=== PATIENT | male | born 1950 | race Caucasian/White ===

== ENCOUNTER 2017-04-21 06:45 | Outpatient (CLI) | payer MEDICARE ==
[2017-04-21 12:46] LABS: EOSINOPHILS # (AUTO) 0.2 10^3/uL (0.0-0.7); LYMPHOCYTES # (AUTO) 1.6 10^3/uL (1.5-3.5); NEUTROPHILS # (AUTO) 2.8 10^3/uL (1.5-6.6); RED BLOOD COUNT 5.03 10^6/uL (4.70-6.10)
[2017-04-21 12:49] LABS: BASOPHILS % (AUTO) 0.7 %; EOSINOPHILS % (AUTO) 4.8 %; HCT - HEMATOCRIT 42.9 % (42.0-52.0); HGB - HEMOGLOBIN 14.6 g/dL (14.0-18.0); LYMPHOCYTES % (AUTO) 30.7 %; MEAN CORPUSCULAR VOLUME 85.4 fL (80.0-94.0); MEAN PLATELET VOLUME 7.6 fL (7.4-11.4); MONOCYTES # (AUTO) 0.5 10^3/uL (0.0-1.0); NEUTROPHILS % (AUTO) 54.8 %; RED CELL DISTRIBUTION WIDTH 13.6 % (12.0-15.0); UNCORRECTED WHITE BLOOD COUNT 5.2 x10^3/uL; WHITE BLOOD COUNT 5.2 x10^3/uL (4.8-10.8)
[2017-04-21 13:16] LABS: ALBUMIN/GLOBULIN RATIO 1.5 (1.0-2.2); BILIRUBIN,TOTAL 0.8 mg/dL (0.2-1.0); BUN - BLOOD UREA NITROGEN 12 mg/dL (6-20); CALCIUM 9.1 mg/dL (8.5-10.3); CARBON DIOXIDE - CO2 27 mmol/L (21-32); CHLORIDE 104 mmol/L (101-111); CHOLESTEROL 254 mg/dL; CREATININE 0.9 mg/dL (0.6-1.2); GFR - MDRD 84 (>89); GLUCOSE 94 mg/dL (70-100); HDL CHOLESTEROL 42 mg/dL; LDL/HDL RATIO 4.3 (<3.6); POTASSIUM 4.1 mmol/L (3.5-5.0); SODIUM 137 mmol/L (135-145); TOTAL PROTEIN 6.3 g/dL (6.7-8.2); TRIGLYCERIDES 150 mg/dL; VLDL CHOLESTEROL 30 mg/dL
== END 2017-04-21 06:46 | disposition home or self-care (01) ==
LOC: LAB.WCP 06:45
PROVIDERS: ATTEND Family Medicine
DX: E78.5 Hyperlipidemia, unspecified (principal); Z12.5 Encounter for screening for malignant neoplasm of prostate
CPT/HCPCS: 36415; 80053; 80061; 85025; G0103; 84153

== ENCOUNTER 2017-06-09 14:12 | Outpatient (CLI) | payer MEDICARE ==
--- NOTE | 2017-06-09 16:49 | Ultrasound Report ---
ULTRASOUND LEFT POSTERIOR BACK: 06/09/2017 CLINICAL INDICATION: Parascapular mass. TECHNIQUE: Real-time scanning was performed with veterans employment representative static images obtained. FINDINGS: Ultrasound of the palpable abnormality identified by the patient was performed. At this site, there is a 7.2 x 3.5 x 2.3 cm echogenic intramuscular lesion, compatible with an intram uscular lipoma. No significant internal vascularity is identified. 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 JOB #: [id number] EXT JOB #:[id number]
== END 2017-06-09 14:13 | disposition home or self-care (01) ==
LOC: DI 14:12
PROVIDERS: ATTEND Family Medicine
DX: R22.2 Localized swelling, mass and lump, trunk (principal)
CPT/HCPCS: 76882

== ENCOUNTER 2018-04-21 10:15 | Outpatient (CLI) | payer MEDICARE ==
[2018-04-21 12:45] LABS: PSA FREE 1.21 ng/mL (0.16-2.81)
[2018-04-21 12:46] LABS: PSA TOTAL 3.58 ng/mL (0.000-2.000)
[2018-04-21 12:58] LABS: ALBUMIN 3.6 g/dL (3.2-5.5); ALBUMIN/GLOBULIN RATIO 1.2 (1.0-2.2); ALKALINE PHOSPHATASE 52 IU/L (42-121); ALT ALANINE AMINOTRANSFERASE 22 IU/L (10-60); AST ASPARTATE AMINOTRANSFERASE 27 IU/L (10-42); BILIRUBIN,TOTAL 0.7 mg/dL (0.2-1.0); BUN - BLOOD UREA NITROGEN 12 mg/dL (6-20); CALCIUM 9.2 mg/dL (8.5-10.3); CARBON DIOXIDE - CO2 29 mmol/L (21-32); CHLORIDE 104 mmol/L (101-111); CHOL/HDL RATIO 5.4 (<5.0); CHOLESTEROL 254 mg/dL; GFR - MDRD 74 (>89); GLUCOSE 97 mg/dL (70-100); HDL CHOLESTEROL 47 mg/dL; LDL CHOLESTEROL,CALCULATED 174 mg/dL; LDL/HDL RATIO 3.7 (<3.6); SODIUM 138 mmol/L (135-145); TOTAL PROTEIN 6.6 g/dL (6.7-8.2); VLDL CHOLESTEROL 33 mg/dL
== END 2018-04-21 10:16 | disposition home or self-care (01) ==
LOC: LAB.WCP 10:15
PROVIDERS: ATTEND Family Medicine
DX: E78.5 Hyperlipidemia, unspecified (principal); R97.20 Elevated prostate specific antigen [PSA]
CPT/HCPCS: 36415; 80053; 80061; 83721; 84154

== ENCOUNTER 2018-08-08 11:44 | Day surgery (SDC) | payer MEDICARE ==
[2018-08-08] MEDS ORDERED: LACTATED RINGERS 1,000 ML IV ONE (12:36)
[2018-08-08] MEDS ORDERED: MIDAZOLAM 2 MG/2 ML VIAL IVP ONE (13:01)
[2018-08-08] MEDS ORDERED: fentaNYL 250 MCG/5 ML VIAL IVP ONE (13:01)
[2018-08-08 14:13] VITALS: BP 105/68
== END 2018-08-08 11:45 | disposition home or self-care (01) ==
LOC: SDS 11:44
PROVIDERS: ATTEND Surgery
PROC: 0DJD8ZZ Inspection of Lower Intestinal Tract, Via Natural or Artificial Opening Endoscopic (ICD-10-PCS; principal; 2018-08-08 13:15)
DX: R19.5 Other fecal abnormalities (principal); K57.30 Diverticulosis of large intestine without perforation or abscess without bleeding; K64.8 Other hemorrhoids
CPT/HCPCS: 45378; J3010; J7120

== ENCOUNTER 2018-11-07 08:00 | Outpatient (CLI) | payer MEDICARE ==
[2018-11-07 15:20] LABS: PSA FREE 1.37 ng/mL (0.16-2.81)
[2018-11-07 15:21] LABS: PSA TOTAL 3.43 ng/mL (0.000-2.000)
== END 2018-11-07 23:59 | disposition home or self-care (01) ==
LOC: LAB.WCP 08:00
PROVIDERS: ATTEND Family Medicine
DX: R97.20 Elevated prostate specific antigen [PSA] (principal)
CPT/HCPCS: 36415; 84153; 84154

== ENCOUNTER 2019-06-08 08:00 | Outpatient (CLI) | payer MEDICARE ==
[2019-06-08 12:47] LABS: BASOPHILS % (AUTO) 0.8 %; EOSINOPHILS # (AUTO) 0.3 10^3/uL (0.0-0.7); EOSINOPHILS % (AUTO) 6.7 %; HGB - HEMOGLOBIN 14.5 g/dL (14.0-18.0); LYMPHOCYTES # (AUTO) 1.6 10^3/uL (1.5-3.5); LYMPHOCYTES % (AUTO) 32.8 %; MEAN CORPUSCULAR HEMOGLOBIN 28.7 pg (27.0-31.0); MEAN CORPUSCULAR HGB CONC 32.2 g/dL (32.0-36.0); MEAN CORPUSCULAR VOLUME 89.3 fL (80.0-94.0); MONOCYTES # (AUTO) 0.5 10^3/uL (0.0-1.0); NEUTROPHILS # (AUTO) 2.4 10^3/uL (1.5-6.6); NEUTROPHILS % (AUTO) 49.5 %; PLT - PLATELET COUNT 179 10^3/uL (130-450); RED BLOOD COUNT 5.05 10^6/uL (4.70-6.10); WHITE BLOOD COUNT 4.8 x10^3/uL (4.8-10.8)
[2019-06-08 13:19] LABS: ALBUMIN 3.6 g/dL (3.2-5.5); ALBUMIN/GLOBULIN RATIO 1.4 (1.0-2.2); ALKALINE PHOSPHATASE 50 IU/L (42-121); ALT ALANINE AMINOTRANSFERASE 18 IU/L (10-60); AST ASPARTATE AMINOTRANSFERASE 22 IU/L (10-42); BILIRUBIN,TOTAL 0.9 mg/dL (0.2-1.0); BUN - BLOOD UREA NITROGEN 16 mg/dL (6-20); CALCIUM 9.2 mg/dL (8.5-10.3); CARBON DIOXIDE - CO2 26 mmol/L (21-32); CHLORIDE 109 mmol/L (101-111); CHOL/HDL RATIO 6.1 (<5.0); CHOLESTEROL 256 mg/dL; CREATININE 0.8 mg/dL (0.6-1.2); GFR - MDRD 96 (>89); GLUCOSE 87 mg/dL (70-100); HDL CHOLESTEROL 42 mg/dL; LDL CHOLESTEROL,CALCULATED 188 mg/dL; LDL/HDL RATIO 4.5 (<3.6); SODIUM 142 mmol/L (135-145); TOTAL PROTEIN 6.1 g/dL (6.7-8.2); VLDL CHOLESTEROL 26 mg/dL
[2019-06-08 13:22] LABS: PSA FREE 1.27 ng/mL (0.16-2.81)
[2019-06-08 13:23] LABS: PSA TOTAL 2.85 ng/mL (0.000-2.000)
== END 2019-06-08 23:59 | disposition home or self-care (01) ==
LOC: LAB.WCP 08:00
PROVIDERS: ATTEND Family Medicine
DX: E78.5 Hyperlipidemia, unspecified (principal); R97.20 Elevated prostate specific antigen [PSA]
CPT/HCPCS: 36415; 80053; 80061; 83721; 84153; 84154; 84443; 85025

== ENCOUNTER 2019-12-28 15:40 | Outpatient (CLI) | payer MEDICARE, OTHER ==
[2019-12-28 18:40] LABS: BASOPHILS % (AUTO) 0.7 %; EOSINOPHILS # (AUTO) 0.2 10^3/uL (0.0-0.7); HGB - HEMOGLOBIN 16.3 g/dL (14.0-18.0); LYMPHOCYTES # (AUTO) 1.7 10^3/uL (1.5-3.5); LYMPHOCYTES % (AUTO) 30.8 %; MEAN CORPUSCULAR VOLUME 88.1 fL (80.0-94.0); MEAN PLATELET VOLUME 10.1 fL (7.4-11.4); MONOCYTES # (AUTO) 0.5 10^3/uL (0.0-1.0); MONOCYTES % (AUTO) 9.6 %; NEUTROPHILS % (AUTO) 55.5 %; PLT - PLATELET COUNT 210 10^3/uL (130-450); RED BLOOD COUNT 5.44 10^6/uL (4.70-6.10); RED CELL DISTRIBUTION WIDTH 12.8 % (12.0-15.0); WHITE BLOOD COUNT 5.4 x10^3/uL (4.8-10.8)
[2019-12-28 18:46] LABS: ALBUMIN 4.2 g/dL (3.2-5.5); ALBUMIN/GLOBULIN RATIO 1.6 (1.0-2.2); BILIRUBIN,TOTAL 0.6 mg/dL (0.2-1.0); CALCIUM 9.5 mg/dL (8.5-10.3); CREATININE 0.9 mg/dL (0.6-1.2); TOTAL PROTEIN 6.8 g/dL (6.7-8.2)
== END 2019-12-28 23:59 | disposition home or self-care (01) ==
LOC: LAB.WCP 15:40
PROVIDERS: ATTEND Family Medicine
DX: R55 Syncope and collapse (principal); Z79.899 Other long term (current) drug therapy
CPT/HCPCS: 36415; 80053; 84443; 85025

== ENCOUNTER 2019-12-29 13:54 | Outpatient (CLI) | payer OTHER, MEDICARE ==
--- NOTE | 2019-12-29 15:46 | XRAY Report ---
Reason: RIGHT SCIATICA Procedure Date: 12/29/2019 Accession Number: [id number] / [id number] Procedure: WCP - Lumbar Spine 2 View CPT Code: Final Report FULL RESULT: EXAM: LUMBOSACRAL SPINE RADIOGRAPHY EXAM DATE: 12/29/2019 01:54 PM. CLINICAL HISTORY: RIGHT SCIATICA. COMPARISONS: None. TECHNIQUE: 2 views. FINDINGS: Alignment: Mild dextroconvex scoliosis. The Garza angle is approximately 6 degrees. Bones: Five cte-[id number] lumbar vertebral bodies are present. Small anterolateral osteophytes at the lumbar spine. No acute fracture or bone lesions. Disks: Moderate to severe L4-L5 and mild to moderate L3-L4 disk space narrowing. Facets: L4-L5 and L5-S1 facet arthropathy. Mild to moderate bilateral hip osteoarthritis. Sacroiliac Joints: Unremarkable. Soft Tissues: Normal. The visualized bowel gas pattern is normal. IMPRESSION: 1. Mild dextroconvex scoliosis. 2. Disk space narrowing at L4-L5 and L3-L4. 3. L4-L5 and L5-S1 facet arthropathy. 4. Mild to moderate bilateral hip osteoarthritis. RADIA
== END 2019-12-29 23:59 | disposition home or self-care (01) ==
LOC: DI.WCP 13:54
PROVIDERS: ATTEND Family Medicine
DX: M47.816 Spondylosis without myelopathy or radiculopathy, lumbar region (principal); M47.817 Spondylosis without myelopathy or radiculopathy, lumbosacral region; M51.36 Other intervertebral disc degeneration, lumbar region; M41.9 Scoliosis, unspecified; M16.0 Bilateral primary osteoarthritis of hip
CPT/HCPCS: 72100

== ENCOUNTER 2020-05-02 07:00 | Outpatient (CLI) | payer OTHER ==
[2020-05-02 21:30] LABS: TRICHOMONAS VAGINALIS DNA NEGATIVE (NEGATIVE)
[2020-05-03 08:34] LABS: HIV AG/AB 4TH GEN NON-REACTIVE (NON-REACTIVE)
[2020-05-03 13:15] LABS: HEPATITIS C ANTIBODY NON-REACTIVE (NON-REACTIVE)
[2020-05-04 13:44] LABS: HSV 1 IGG TYPE SPECIFIC AB >58.00 index; HSV 2 IGG TYPE SPECIFIC AB <0.90 index
== END 2020-05-02 23:59 | disposition home or self-care (01) ==
LOC: LAB.WCP 07:00
PROVIDERS: ATTEND Family Medicine
DX: Z11.3 Encounter for screening for infections with a predominantly sexual mode of transmission (principal)
CPT/HCPCS: 36415; 81599; 86592; 86695; 86696; 86803; 87389; 87491; 87591; 87661

== ENCOUNTER 2020-08-27 10:40 | Outpatient (CLI) | payer OTHER ==
[2020-08-27 18:37] LABS: EOSINOPHILS # (AUTO) 0.2 10^3/uL (0.0-0.7); EOSINOPHILS % (AUTO) 3.8 %; LYMPHOCYTES # (AUTO) 1.2 10^3/uL (1.5-3.5); LYMPHOCYTES % (AUTO) 31.1 %; MEAN CORPUSCULAR HEMOGLOBIN 29.6 pg (27.0-31.0); MEAN CORPUSCULAR HGB CONC 32.5 g/dL (32.0-36.0); MEAN CORPUSCULAR VOLUME 90.9 fL (80.0-94.0); MEAN PLATELET VOLUME 9.9 fL (7.4-11.4); MONOCYTES # (AUTO) 0.4 10^3/uL (0.0-1.0); MONOCYTES % (AUTO) 9.9 %; NEUTROPHILS # (AUTO) 2.1 10^3/uL (1.5-6.6); NEUTROPHILS % (AUTO) 53.9 %; PLT - PLATELET COUNT 205 10^3/uL (130-450); RED BLOOD COUNT 5.07 10^6/uL (4.70-6.10)
[2020-08-27 18:45] LABS: ALBUMIN 3.8 g/dL (3.2-5.5); ALBUMIN/GLOBULIN RATIO 1.4 (1.0-2.2); ALKALINE PHOSPHATASE 63 IU/L (42-121); ALT ALANINE AMINOTRANSFERASE 24 IU/L (10-60); AST ASPARTATE AMINOTRANSFERASE 24 IU/L (10-42); BUN - BLOOD UREA NITROGEN 15 mg/dL (6-20); CALCIUM 9.1 mg/dL (8.5-10.3); CARBON DIOXIDE - CO2 28 mmol/L (21-32); CHLORIDE 105 mmol/L (101-111); CHOL/HDL RATIO 6.1 (<5.0); CHOLESTEROL 267 mg/dL; CREATININE 0.9 mg/dL (0.6-1.2); GLUCOSE 89 mg/dL (70-100); HDL CHOLESTEROL 44 mg/dL; LDL CHOLESTEROL,CALCULATED 199 mg/dL; LDL/HDL RATIO 4.5 (<3.6); SODIUM 138 mmol/L (135-145); TOTAL PROTEIN 6.5 g/dL (6.7-8.2); VLDL CHOLESTEROL 24 mg/dL
[2020-08-27 18:46] LABS: PSA FREE 1.075 ng/mL (0.16-2.81)
[2020-08-27 18:47] LABS: PSA TOTAL 3.168 ng/mL (0.000-2.000)
== END 2020-08-27 23:59 | disposition home or self-care (01) ==
LOC: LAB.WCP 10:40
PROVIDERS: ATTEND Family Medicine
DX: E78.5 Hyperlipidemia, unspecified (principal); R97.20 Elevated prostate specific antigen [PSA]; N40.1 Benign prostatic hyperplasia with lower urinary tract symptoms; D17.1 Benign lipomatous neoplasm of skin and subcutaneous tissue of trunk
CPT/HCPCS: 36415; 80053; 80061; 83721; 84153; 84154; 84443; 85025

== ENCOUNTER 2020-12-03 00:39 | Emergency (ER) | payer OTHER ==
[2020-12-03 01:02] LABS: BASOPHILS # (AUTO) 0.1 10^3/uL (0.0-0.1); BASOPHILS % (AUTO) 0.9 %; EOSINOPHILS # (AUTO) 0.4 10^3/uL (0.0-0.7); EOSINOPHILS % (AUTO) 6.2 %; HGB - HEMOGLOBIN 15.7 g/dL (14.0-18.0); LYMPHOCYTES # (AUTO) 2.1 10^3/uL (1.5-3.5); LYMPHOCYTES % (AUTO) 30.2 %; MEAN CORPUSCULAR HEMOGLOBIN 29.7 pg (27.0-31.0); MEAN CORPUSCULAR HGB CONC 33.3 g/dL (32.0-36.0); MEAN CORPUSCULAR VOLUME 89.2 fL (80.0-94.0); MEAN PLATELET VOLUME 9.2 fL (7.4-11.4); MONOCYTES # (AUTO) 0.6 10^3/uL (0.0-1.0); MONOCYTES % (AUTO) 8.7 %; NEUTROPHILS # (AUTO) 3.7 10^3/uL (1.5-6.6); NEUTROPHILS % (AUTO) 53.7 %; PLT - PLATELET COUNT 178 10^3/uL (130-450); RED BLOOD COUNT 5.29 10^6/uL (4.70-6.10); RED CELL DISTRIBUTION WIDTH 12.3 % (12.0-15.0); WHITE BLOOD COUNT 6.9 x10^3/uL (4.8-10.8)
[2020-12-03] MEDS ORDERED: ASPIRIN CHEW 81 MG TABLET PO STA (01:12)
[2020-12-03 01:15] LABS: ALBUMIN 4.1 g/dL (3.2-5.5); ALBUMIN/GLOBULIN RATIO 1.5 (1.0-2.2); BILIRUBIN,TOTAL 0.5 mg/dL (0.2-1.0); CALCIUM 9.2 mg/dL (8.5-10.3); CREATININE 0.9 mg/dL (0.6-1.2); TOTAL PROTEIN 6.9 g/dL (6.7-8.2)
[2020-12-03] MEDS ORDERED: CLOPIDOGREL 300 MG TABLET PO STA (01:37)
[2020-12-03] MEDS ORDERED: ENOXAPARIN 80 MG/0.8 ML SYRINGE SUBQ STA (01:44)
[2020-12-03] MEDS ORDERED: ATORVASTATIN 40 MG TABLET PO STA (02:07)
[2020-12-03 02:34] LABS: C. PNEUMONIAE- RESP PCR PANEL NOT DETECTED
--- NOTE | 2020-12-03 03:12 | ED Physician Documentation ---
PD HPI CHEST PAIN - Stated complaint Stated Complaint: CHEST PRESSURE - Chief complaint Chief Complaint: Cardiac - Additional information Additional information: 70yM with pmh hld p/w intermittent CP over past two days, 08/17 around 3pm today when walking uphill, constant, "tight" quality, improving and then resolving with rest. substernal, radiating to L arm, a/w dizziness but no nausea or sob, no back pain, nonpleuritic. He again experienced CP at 11pm while in bed, prompting him to come to the ED. denies fevers, cough, leg swelling. no FH GA at <65 in first degree relative. +FH stroke in first degree relative Review of Systems Ten Systems: 10 systems reviewed and negative Cardiac: reports: Chest pain / pressure Neurologic: reports: Other (dizziness) PD PAST MEDICAL HISTORY - Past Medical History Past Medical History: Yes Cardiovascular: High cholesterol Respiratory: None Neuro: None Endocrine/Autoimmune: None GI: None : Benign prostate hypertrophy, Other HEENT: Glaucoma Psych: None Musculoskeletal: None Derm: None Other Past Medical History: Erectile Dysfunction - Past Surgical History Past Surgical History: Yes General: Appendectomy, Other HEENT: Cataracts - Present Medications Home Medications: Ambulatory Orders Medication Instructions Recorded Confirmed Latanoprost [Xalatan] 2.5 ml OP 08/08/18 Timolol 0.25% Ophth Drops 1 drops OPTH BID 08/08/18 12/03/20 [Timoptic 0.25% Ophth Drops] Multivit-Min/FA/Lycopen/Lutein 1 each PO 12/03/20 [Adults 50 Plus Multivitamin] [place]-3/Dha/Epa/Fish Oil [[place] 3 1 each PO 12/03/20 500 Softgel] Rosuvastatin Calcium [Crestor] 10 mg PO QPM 12/03/20 12/03/20 Sildenafil Citrate [Viagra] 25 mg PO PRN PRN 12/03/20 12/03/20 Tamsulosin [Flomax] 0.4 mg PO QPM 12/03/20 12/03/20 - Allergies Allergies/Adverse Reactions: Allergies Allergy/AdvReac Type Severity Reaction Status Date / Time No Known Drug Allergies Allergy Verified 08/08/18 12:27 - Social History Does the pt smoke?: No Smoking Status: Never smoker Does the pt drink ETOH?: No Does the pt have substance abuse?: No - Immunizations Immunizations are current?: No - POLST Patient has POLST: No PD ED PE NORMAL - Vitals Vital signs reviewed: Yes - General General: Alert and oriented X 3 - HEENT HEENT: Atraumatic, PERRL, EOMI - Neck Neck: Supple, no meningeal sign - Cardiac Cardiac: RRR - Respiratory Respiratory: No respiratory distress, Clear bilaterally - Abdomen Abdomen: Non tender, Non distended - Male Male : Deferred - Rectal Rectal: Deferred - Back Back: No spinal TTP - Derm Derm: Normal color, Warm and dry - Extremities Extremities: No deformity - Neuro Neuro: Alert and oriented X 3 - Psych Psych: Normal mood, Normal affect Results - Vitals Vitals: Vital Signs - 24 hr 12/03/20 12/03/20 12/03/20 00:42 01:12 03:01 Temperature 36.2 C L Heart Rate 76 90 Respiratory 21 14 Rate Blood Pressure 163/98 H 152/68 H Blood Pressure 141/90 H [Left] Blood Pressure 138/88 H [Right] O2 Saturation 95 Oxygen O2 Source Nasal cannula - EKG (time done) 0044 Rate: Rate (enter#) (59) Rhythm: NSR Other comments: Other comments (twi in lead II, III, avF. minimal std (1mm) in anterolateral leads) 0137 Rate: Rate (enter#) (62) Compare to prior EKG: Unchanged from prior EKG - Labs Labs: Laboratory Tests 12/03/20 12/03/20 12/03/20 00:54 00:54 00:54 WBC 6.9 RBC 5.29 Hgb 15.7 Hct 47.2 MCV 89.2 MCH 29.7 MCHC 33.3 RDW 12.3 Plt Count 178 MPV 9.2 Neut # (Auto) 3.7 Lymph # (Auto) 2.1 [place] # (Auto) 0.6 Eos # (Auto) 0.4 Baso # (Auto) 0.1 Absolute Nucleated RBC 0.00 Nucleated RBC % 0.0 Sodium 138 Potassium 3.5 Chloride 103 Carbon Dioxide 28 Anion Gap 7.0 BUN 13 Creatinine 0.9 Estimated GFR (MDRD) 83 L Glucose 103 H Calcium 9.2 Total Bilirubin 0.5 AST 31 ALT 39 Alkaline Phosphatase 69 Troponin I High Sens 256.9 H* Total Protein 6.9 Albumin 4.1 Globulin 2.8 Albumin/Globulin Ratio 1.5 Lipase 68 H Nasal Adenovirus (PCR) Nasal B. parapertussis DNA (PCR) Nasal Coronavir 229E PCR Nasal Coronavir HKU1 PCR Nasal Coronavir NL63 PCR Nasal Coronavir OC43 PCR Nasal Enterovir/Rhinovir PCR Nasal Influenza B PCR Nasal Influenza A PCR Nasal Parainfluen 1 PCR Nasal Parainfluen 2 PCR Nasal Parainfluen 3 PCR Nasal Parainfluen 4 PCR Nasal RSV (PCR) Nasal B.pertussis DNA PCR Nasal C.pneumoniae (PCR) [place] Human Metapneumo PCR Nasal M.pneumoniae (PCR) Nasal SARS-CoV-2 (PCR) 12/03/20 01:40 WBC RBC Hgb Hct MCV MCH MCHC RDW Plt Count MPV Neut # (Auto) Lymph # (Auto) [place] # (Auto) Eos # (Auto) Baso # (Auto) Absolute Nucleated RBC Nucleated RBC % Sodium Potassium Chloride Carbon Dioxide Anion Gap BUN Creatinine Estimated GFR (MDRD) Glucose Calcium Total Bilirubin AST ALT Alkaline Phosphatase Troponin I High Sens Total Protein Albumin Globulin Albumin/Globulin Ratio Lipase Nasal Adenovirus (PCR) NOT DETECTED Nasal B. parapertussis DNA (PCR) NOT DETECTED Nasal Coronavir 229E PCR NOT DETECTED Nasal Coronavir HKU1 PCR NOT DETECTED Nasal Coronavir NL63 PCR NOT DETECTED Nasal Coronavir OC43 PCR NOT DETECTED Nasal Enterovir/Rhinovir PCR NOT DETECTED Nasal Influenza B PCR NOT DETECTED Nasal Influenza A PCR NOT DETECTED Nasal Parainfluen 1 PCR NOT DETECTED Nasal Parainfluen 2 PCR NOT DETECTED Nasal Parainfluen 3 PCR NOT DETECTED Nasal Parainfluen 4 PCR NOT DETECTED Nasal RSV (PCR) NOT DETECTED Nasal B.pertussis DNA PCR NOT DETECTED Nasal C.pneumoniae (PCR) NOT DETECTED [place] Human Metapneumo PCR NOT DETECTED Nasal M.pneumoniae (PCR) NOT DETECTED Nasal SARS-CoV-2 (PCR) NOT DETECTED PD MEDICAL DECISION MAKING - ED course ED course: Patient without active chest pain in ED. EKGs do show evidence of subacute GA with twi and q waves in inferior leads. d/w Dr. Zhang, [facility] who reviewed ekgs and agrees with assessment. [facility]. Departure - Departure Disposition: 02 Transfer Acute Care Hosp Clinical Impression: Myocardial infarction in recovery phase, Chest pain Condition: Stable
[2020-12-03 05:23] VITALS: BP 135/86
--- NOTE | 2020-12-03 08:20 | XRAY Report ---
PROCEDURE: Chest 1 View X-Ray INDICATIONS: Chest Pain TECHNIQUE: One view of the chest was acquired. COMPARISON: 06/03/2017 FINDINGS: Surgical changes and devices: None. Lungs and pleura: No pleural effusions or pneumothorax. Lungs are clear. Mediastinum: Mediastinal contours appear normal. Heart size is normal. Bones and chest wall: No suspicious bony lesions. Overlying soft tissues appear unremarkable. IMPRESSION: No acute cardiopulmonary pathology. No discrepancies from preliminary reading. Reviewed by: Damián Giles MD on 12/03/2020 8:19 AM PST Approved by: Damián Giles MD on 12/03/2020 8:19 AM [facility] Station ID: [id number]
== END 2020-12-03 05:26 | disposition short-term general hospital (02) ==
LOC: ED 00:39
DX: I21.19 ST elevation (STEMI) myocardial infarction involving other coronary artery of inferior wall (principal); R42 Dizziness and giddiness; Z20.822 Contact with and (suspected) exposure to COVID-19
CPT/HCPCS: 0202U; 36415; 71045; 80053; 83690; 84484; 85025; 93005; 96372; 99284; 99285; A9270; J1650

== ENCOUNTER 2020-12-03 05:33 | Outpatient (CLI) | payer OTHER | END 2020-12-03 05:34 | disposition short-term general hospital (02) | LOC: EMS 05:33 | PROVIDERS: ATTEND Surgery | DX: I21.9 Acute myocardial infarction, unspecified (principal) | CPT/HCPCS: A0425; A0426 ==

== ENCOUNTER 2021-03-05 14:20 | Emergency (ER) | payer OTHER ==
--- OUTSIDE RECORDS SUMMARY | 2021-03-05 14:23 | EXTERNAL MEDICAL SUMMARY RPT | Continuity of Care Document ---
:1950 Demographics Phone Unavailable Preferred Language Unknown Marital Status Unknown Jew Affiliation Unknown Race Unknown Ethnic Group Unknown Author Organization [place] Address [address] [phone] Phone Social History date description facility [phone]
--- OUTSIDE RECORDS SUMMARY | 2021-03-05 14:28 | EXTERNAL MEDICAL SUMMARY RPT | Continuity of Care Document ---
:1950 Demographics Phone Unavailable Preferred Language Unknown Marital Status Unknown Mosque Affiliation Unknown Race Unknown Ethnic Group Unknown Author Organization [place] Address [address] [phone] Phone Social History date description facility [phone]
--- NOTE | 2021-03-05 14:33 | ED Physician Documentation ---
History of Present Illness - Stated complaint Stated Complaint: LOW HEART RATE - History obtained from History obtained from: Patient - Additonal information Additional information: 70-year-old gentleman had an NSTEMI in November. He is maintained on metoprolol at a dose of 25 mg a day since then. He was done in cardiac rehab and he developed asymptomatic bradycardia and was referred here for that. He feels fine, has not had any dizzy episodes or chest pain. Review of Systems Constitutional: denies: Fatigue, Weight Loss Cardiac: denies: Chest pain / pressure, Palpitations Respiratory: denies: Dyspnea, Cough PD PAST MEDICAL HISTORY - Past Medical History Cardiovascular: High cholesterol Respiratory: None Neuro: None Endocrine/Autoimmune: None GI: None : Benign prostate hypertrophy, Other HEENT: Glaucoma Psych: None Musculoskeletal: None Derm: None - Past Surgical History Past Surgical History: Yes General: Appendectomy, Other HEENT: Cataracts - Present Medications Home Medications: Ambulatory Orders Medication Instructions Recorded Confirmed Latanoprost [Xalatan] 2.5 ml OP 08/08/18 Timolol 0.25% Ophth Drops 1 drops OPTH BID 08/08/18 12/03/20 [Timoptic 0.25% Ophth Drops] Multivit-Min/FA/Lycopen/Lutein 1 each PO 12/03/20 [Adults 50 Plus Multivitamin] [place]-3/Dha/Epa/Fish Oil [[place] 3 1 each PO 12/03/20 500 Softgel] Rosuvastatin Calcium [Crestor] 10 mg PO QPM 12/03/20 12/03/20 Sildenafil Citrate [Viagra] 25 mg PO PRN PRN 12/03/20 12/03/20 Tamsulosin [Flomax] 0.4 mg PO QPM 12/03/20 12/03/20 - Allergies Allergies/Adverse Reactions: Allergies Allergy/AdvReac Type Severity Reaction Status Date / Time No Known Drug Allergies Allergy Verified 03/05/21 14:33 - Social History Does the pt smoke?: No Smoking Status: Never smoker Does the pt drink ETOH?: No Does the pt have substance abuse?: No - Immunizations Immunizations are current?: No - POLST Patient has POLST: No PD ED PE NORMAL - Vitals Vital signs reviewed: Yes - General General: Alert and oriented X 3, No acute distress - Neck Neck: Supple, no meningeal sign, No bony TTP - Cardiac Cardiac: No murmur, Other (charan/reg) - Respiratory Respiratory: No respiratory distress, Clear bilaterally - Abdomen Abdomen: Non tender - Extremities Extremities: No edema, No calf tenderness / cord - Neuro Neuro: Alert and oriented X 3, Normal speech Results - Vitals Vitals: Vital Signs - 24 hr 03/05/21 03/05/21 03/05/21 14:30 14:39 15:12 Temperature 36.8 C Heart Rate 36 L 39 L 63 Respiratory 18 17 19 Rate Blood Pressure 142/78 H 117/80 122/76 O2 Saturation 99 98 97 Oxygen O2 Source Room air - EKG (time done) 1428 Rate: Rate (enter#) (35) Rhythm: NSR [place]: Normal Intervals: Normal ID QRS: Normal Ischemia: Normal ST segments, Q waves (inferior) Computer interpretation: Agree with computer - Labs Labs: Laboratory Tests 03/05/21 03/05/21 14:40 14:40 WBC 5.3 RBC 4.81 Hgb 14.1 Hct 42.5 MCV 88.4 MCH 29.3 MCHC 33.2 RDW 12.5 Plt Count 177 MPV 9.4 Neut # (Auto) 3.1 Lymph # (Auto) 1.3 L [place] # (Auto) 0.5 Eos # (Auto) 0.4 Baso # (Auto) 0.0 Absolute Nucleated RBC 0.00 Nucleated RBC % 0.0 Sodium 140 Potassium 4.4 Chloride 106 Carbon Dioxide 25 Anion Gap 9.0 BUN 18 Creatinine 0.8 Estimated GFR (MDRD) 95 Glucose 109 H Calcium 9.4 Magnesium 2.0 PD MEDICAL DECISION MAKING - ED course ED course: 70-year-old gentleman on metoprolol presents with asymptomatic bradycardia from cardiac rehab. Advised to lower his metoprolol dose and close follow-up. Departure - Departure Disposition: 01 Home, Self Care Clinical Impression: Bradycardia Condition: Stable Record reviewed to determine appropriate education?: Yes Comments: Decrease your metoprolol to 12.5 milligrams a day. If you become symptomatic: dizzy, chest pain, passing out please return for reevaluation. Follow-up with your physician Wednesday or Wednesday for recheck. Discharge Date/Time: 03/05/21 15:19
[2021-03-05 14:50] LABS: BASOPHILS % (AUTO) 0.6 %; EOSINOPHILS # (AUTO) 0.4 10^3/uL (0.0-0.7); EOSINOPHILS % (AUTO) 6.8 %; HCT - HEMATOCRIT 42.5 % (42.0-52.0); HGB - HEMOGLOBIN 14.1 g/dL (14.0-18.0); LYMPHOCYTES # (AUTO) 1.3 10^3/uL (1.5-3.5); LYMPHOCYTES % (AUTO) 24.5 %; MEAN CORPUSCULAR HEMOGLOBIN 29.3 pg (27.0-31.0); MEAN CORPUSCULAR HGB CONC 33.2 g/dL (32.0-36.0); MEAN CORPUSCULAR VOLUME 88.4 fL (80.0-94.0); MEAN PLATELET VOLUME 9.4 fL (7.4-11.4); MONOCYTES # (AUTO) 0.5 10^3/uL (0.0-1.0); MONOCYTES % (AUTO) 9.2 %; NEUTROPHILS # (AUTO) 3.1 10^3/uL (1.5-6.6); NEUTROPHILS % (AUTO) 58.7 %; PLT - PLATELET COUNT 177 10^3/uL (130-450); RED BLOOD COUNT 4.81 10^6/uL (4.70-6.10); RED CELL DISTRIBUTION WIDTH 12.5 % (12.0-15.0); WHITE BLOOD COUNT 5.3 x10^3/uL (4.8-10.8)
[2021-03-05 15:05] LABS: CALCIUM 9.4 mg/dL (8.5-10.3); CREATININE 0.8 mg/dL (0.6-1.2); POTASSIUM 4.4 mmol/L (3.5-5.0)
[2021-03-05 15:12] VITALS: BP 122/76
== END 2021-03-05 15:19 | disposition home or self-care (01) ==
LOC: ED 14:20
DX: R00.1 Bradycardia, unspecified (principal); I25.2 Old myocardial infarction
CPT/HCPCS: 36415; 80048; 83735; 85025; 93005; 99283; 99284

== ENCOUNTER 2021-03-17 14:13 | Emergency (ER) | payer OTHER ==
[2021-03-17 14:31] LABS: BASOPHILS % (AUTO) 0.7 %; EOSINOPHILS # (AUTO) 0.4 10^3/uL (0.0-0.7); EOSINOPHILS % (AUTO) 7.8 %; HCT - HEMATOCRIT 46.6 % (42.0-52.0); HGB - HEMOGLOBIN 15.4 g/dL (14.0-18.0); LYMPHOCYTES # (AUTO) 1.4 10^3/uL (1.5-3.5); LYMPHOCYTES % (AUTO) 25.3 %; MEAN CORPUSCULAR HEMOGLOBIN 29.2 pg (27.0-31.0); MEAN CORPUSCULAR VOLUME 88.4 fL (80.0-94.0); MEAN PLATELET VOLUME 9.2 fL (7.4-11.4); MONOCYTES # (AUTO) 0.5 10^3/uL (0.0-1.0); MONOCYTES % (AUTO) 9.5 %; NEUTROPHILS % (AUTO) 56.5 %; PLT - PLATELET COUNT 191 10^3/uL (130-450); RED BLOOD COUNT 5.27 10^6/uL (4.70-6.10); RED CELL DISTRIBUTION WIDTH 12.7 % (12.0-15.0); WHITE BLOOD COUNT 5.4 x10^3/uL (4.8-10.8)
--- NOTE | 2021-03-17 14:33 | ED Physician Documentation ---
History of Present Illness - Stated complaint Stated Complaint: ABNORMAL HEART RATE - Chief complaint Chief Complaint: Cardiac - Additonal information Additional information: 70-year-old male who had a history of an NSTEMI in November of this year presents to the emergency department after asymptomatic bradycardia was noted while he was completing cardiac rehab down in our [facility]. Patient denies that he had chest pain or shortness of air. He had no sensation of feeling faint or syncope. He had a similar ER visit on 05 March and the decision was made at that time to reduce his metoprolol dose to 12-1/2 mg daily. Patient reports that he started taking only 12-1/2 mg of Metroprolol but he continued to find that he had heart rates in the 30s while at home. He describes these all as asymptomatic without feelings of chest pain, shortness of air or syncopal symptoms. However due to the bradycardia he completely stopped taking metoprolol 1 week ago. He was in cardiac rehab today and was undergoing his exercises when he stopped exercising they noted that his heart rate trended down into the 30s. There were frequent PVCs. Cardiology: Dr. Erinn Sy [facility]. Patient is scheduled to see him on 10 April 2021. Review of Systems Constitutional: denies: Fever, Chills Eyes: reports: Loss of vision Ears: reports: Reviewed and negative Cardiac: reports: Chest pain / pressure Respiratory: reports: Reviewed and negative GI: reports: Reviewed and negative : reports: Reviewed and negative Skin: reports: Reviewed and negative Musculoskeletal: reports: Reviewed and negative PD PAST MEDICAL HISTORY - Past Medical History Cardiovascular: High cholesterol Respiratory: None Neuro: None Endocrine/Autoimmune: None GI: None : Benign prostate hypertrophy, Other HEENT: Glaucoma Psych: None Musculoskeletal: None Derm: None - Past Surgical History Past Surgical History: Yes General: Appendectomy, Other Cardiovascular: Coronary stent, Cardiac catheterization HEENT: Cataracts - Present Medications Home Medications: Ambulatory Orders Medication Instructions Recorded Confirmed Latanoprost [Xalatan] 2.5 ml OP DAILY 08/08/18 03/17/21 Timolol 0.25% Ophth Drops 1 drops OPTH BID 08/08/18 03/17/21 [Timoptic 0.25% Ophth Drops] Multivit-Min/FA/Lycopen/Lutein 1 each PO DAILY 12/03/20 03/17/21 [Adults 50 Plus Multivitamin] [place]-3/Dha/Epa/Fish Oil [[place] 3 1 each PO DAILY 12/03/20 03/17/21 500 Softgel] Rosuvastatin Calcium [Crestor] 10 mg PO QPM 12/03/20 03/17/21 Sildenafil Citrate [Viagra] 25 mg PO PRN PRN 12/03/20 03/17/21 Tamsulosin [Flomax] 0.4 mg PO QPM 12/03/20 03/17/21 - Allergies Allergies/Adverse Reactions: Allergies Allergy/AdvReac Type Severity Reaction Status Date / Time No Known Drug Allergies Allergy Verified 03/17/21 14:23 - Social History Does the pt smoke?: No Smoking Status: Never smoker Does the pt drink ETOH?: No Does the pt have substance abuse?: No - Immunizations Immunizations are current?: No - POLST Patient has POLST: No PD ED PE EXPANDED - General General: Alert, No acute distress - Cardiac Cardiac: Stefan, Radial strong equal, Pedal strong equal, Cap refill < 2 sec. No: Murmur Present - Respiratory Respiratory: Clear to ausultation sole. No: Distress, Labored - Abdomen Abdomen: Normal Bowel sounds. No: Tender to palpation - Neuro Neuro: Alert and Oriented X 3, CNII-XII intact - GCS Eye Opening: Spontaneous Motor: Obeys Commands Verbal: Oriented Total: 15 Results - Vitals Vitals: Vital Signs - 24 hr 03/17/21 03/17/21 03/17/21 14:18 14:35 16:25 Temperature 36.0 C L Heart Rate 78 51 L 61 Respiratory 20 21 16 Rate Blood Pressure 154/141 H 112/68 110/79 O2 Saturation 98 97 96 Oxygen O2 Source Room air - EKG (time done) 1416 Rate: Rate (enter#) (37) Rhythm: Sinus bradycardia, Other (PAC noted) Intervals: Normal ID. No: Prolonged QT QRS: Normal Ischemia: Q waves (inferior leads) Compare to prior EKG: Unchanged from prior EKG Computer interpretation: Agree with computer - Labs Labs: Laboratory Tests 03/17/21 03/17/21 03/17/21 14:25 14:25 14:25 WBC 5.4 RBC 5.27 Hgb 15.4 Hct 46.6 MCV 88.4 MCH 29.2 MCHC 33.0 RDW 12.7 Plt Count 191 MPV 9.2 Neut # (Auto) 3.0 Lymph # (Auto) 1.4 L [place] # (Auto) 0.5 Eos # (Auto) 0.4 Baso # (Auto) 0.0 Absolute Nucleated RBC 0.00 Nucleated RBC % 0.0 Sodium 136 Potassium 4.5 Chloride 102 Carbon Dioxide 24 Anion Gap 10.0 BUN 20 Creatinine 0.9 Estimated GFR (MDRD) 83 L Glucose 119 H Calcium 9.6 Total Bilirubin 1.0 AST 26 ALT 27 Alkaline Phosphatase 77 Troponin I High Sens 3.7 Total Protein 6.6 L Albumin 4.2 Globulin 2.4 Albumin/Globulin Ratio 1.8 Lipase 64 H PD MEDICAL DECISION MAKING - ED course Complexity details: reviewed results, re-evaluated patient, d/w patient ED course: 70-year-old male presents the emergency department for evaluation of bradycardia that was noted after he was completing his exercise routine at the cardiac rehab here at the hospital. This is a second such visit for similar. With the last visit he was advised to lower his dose of metoprolol. However he noticed that he continued to have bradycardia therefore he stopped the Metroprolol entirely. Patient reports that he does not have any symptoms with his bradycardia such as feeling faint, lightheaded short of air or with chest pain. It should be noted that his bradycardia seems to occur only during activity or exertion. It increases shortly theraafter We have attempted to speak with his configuration release manager multiple times her [facility] ED, but no return calls were made. pt's EKG, screening labs and CXR unremarkable. I ultimately did speak with Dr. Namrata Moreno configuration release manager on-call at [facility]. He recommends discharge home at this time. He feels the patient should follow-up with his primary care provider and configuration release manager for an outpatient treadmill stress Test as well as a Holter monitor. Emergent return precautions were discussed for shortness of air, fainting episodes chest pain. Departure - Departure Disposition: 01 Home, Self Care Clinical Impression: Bradycardia Condition: Stable Record reviewed to determine appropriate education?: Yes Comments: You were seen today for a low heart rate that was noted while doing cardiac rehabilitation. Your screening EKG labs and chest x-ray do not show any worrisome findings. It is very important that you discuss this and the last ED visit with your configuration release manager. You should be referred for a treadmill stress test as well as a Holter monitor. If at any point you develop sudden shortness of air, chest pain feel faint, dizzy or have fainting episodes please return immediately to the ER.
[2021-03-17 14:47] LABS: ALBUMIN 4.2 g/dL (3.2-5.5); ALBUMIN/GLOBULIN RATIO 1.8 (1.0-2.2); CALCIUM 9.6 mg/dL (8.5-10.3); CREATININE 0.9 mg/dL (0.6-1.2); POTASSIUM 4.5 mmol/L (3.5-5.0); TOTAL PROTEIN 6.6 g/dL (6.7-8.2)
--- NOTE | 2021-03-17 14:59 | XRAY Report ---
PROCEDURE: Chest 1 View X-Ray INDICATIONS: Chest Pain TECHNIQUE: One view of the chest was acquired. COMPARISON: Chest single view 12/03/2020 FINDINGS: Surgical changes and devices: None. Lungs and pleura: No pleural effusions or pneumothorax. Lungs are clear. Mediastinum: Mediastinal contours appear normal. Heart size is normal. Bones and chest wall: No suspicious bony lesions. Overlying soft tissues appear unremarkable. IMPRESSION: Normal for age, source of current symptoms is not seen. Reviewed by: Mauro Ocampo MD on 03/17/2021 2:58 PM PDT Approved by: Mauro Ocampo MD on 03/17/2021 2:58 PM PDT Station ID: [id number]
[2021-03-17 17:37] VITALS: BP 119/78
== END 2021-03-17 17:41 | disposition home or self-care (01) ==
LOC: ED 14:13
DX: R00.1 Bradycardia, unspecified (principal); I49.1 Atrial premature depolarization; Z95.5 Presence of coronary angioplasty implant and graft
CPT/HCPCS: 36415; 80053; 83690; 84484; 85025; 93005; 99284

== ENCOUNTER 2021-12-04 08:00 | Outpatient (CLI) | payer OTHER ==
[2021-12-04 12:33] LABS: ALBUMIN 3.8 g/dL (3.2-5.5); ALBUMIN/GLOBULIN RATIO 1.5 (1.0-2.2); ALKALINE PHOSPHATASE 62 IU/L (42-121); ALT ALANINE AMINOTRANSFERASE 31 IU/L (10-60); AST ASPARTATE AMINOTRANSFERASE 31 IU/L (10-42); BILIRUBIN,TOTAL 0.8 mg/dL (0.2-1.0); BUN - BLOOD UREA NITROGEN 14 mg/dL (6-20); CARBON DIOXIDE - CO2 27 mmol/L (21-32); CHLORIDE 105 mmol/L (101-111); CHOL/HDL RATIO 2.8 (<5.0); CHOLESTEROL 138 mg/dL; CREATININE 0.8 mg/dL (0.6-1.2); GFR - MDRD 95 (>89); GLUCOSE 93 mg/dL (70-100); HDL CHOLESTEROL 49 mg/dL; LDL CHOLESTEROL,CALCULATED 78 mg/dL; LDL/HDL RATIO 1.6 (<3.6); POTASSIUM 4.4 mmol/L (3.5-5.0); SODIUM 138 mmol/L (135-145); TOTAL PROTEIN 6.4 g/dL (6.7-8.2); TRIGLYCERIDES 55 mg/dL; VLDL CHOLESTEROL 11 mg/dL
== END 2021-12-04 23:59 ==
LOC: LAB.WCP 08:00
PROVIDERS: ATTEND Family Medicine
DX: E78.5 Hyperlipidemia, unspecified (principal)
CPT/HCPCS: 36415; 80053; 80061; 83721

== ENCOUNTER 2021-12-18 14:37 | Outpatient (CLI) | payer OTHER | END 2021-12-18 14:38 | disposition EMS.NT | LOC: EMS 14:37 | DX: R20.2 Paresthesia of skin (principal) ==

== ENCOUNTER 2022-07-17 12:07 | Outpatient (CLI) | payer OTHER | END 2022-07-17 12:08 | disposition EMS.NT | LOC: EMS 12:07 | DX: Z03.89 Encounter for observation for other suspected diseases and conditions ruled out (principal) ==

== ENCOUNTER 2023-01-28 08:44 | Outpatient (CLI) | payer OTHER ==
[2023-01-28 12:06] LABS: BASOPHILS % (AUTO) 0.6 %; EOSINOPHILS # (AUTO) 0.3 10^3/uL (0.0-0.7); EOSINOPHILS % (AUTO) 6.7 %; HCT - HEMATOCRIT 46.8 % (42.0-52.0); LYMPHOCYTES # (AUTO) 1.3 10^3/uL (1.5-3.5); LYMPHOCYTES % (AUTO) 28.2 %; MEAN CORPUSCULAR HEMOGLOBIN 29.1 pg (27.0-31.0); MEAN CORPUSCULAR HGB CONC 32.1 g/dL (32.0-36.0); MEAN CORPUSCULAR VOLUME 90.9 fL (80.0-94.0); MEAN PLATELET VOLUME 10.3 fL (7.4-11.4); MONOCYTES # (AUTO) 0.4 10^3/uL (0.0-1.0); MONOCYTES % (AUTO) 8.6 %; NEUTROPHILS # (AUTO) 2.6 10^3/uL (1.5-6.6); NEUTROPHILS % (AUTO) 55.9 %; PLT - PLATELET COUNT 139 10^3/uL (130-450); RED BLOOD COUNT 5.15 10^6/uL (4.70-6.10); RED CELL DISTRIBUTION WIDTH 12.6 % (12.0-15.0); WHITE BLOOD COUNT 4.6 x10^3/uL (4.8-10.8)
[2023-01-28 12:20] LABS: THYROID STIMULATING HORMONE 2.99 uIU/mL (0.34-5.60)
[2023-01-28 12:23] LABS: ALBUMIN 3.5 g/dL (3.2-5.5); ALKALINE PHOSPHATASE 78 IU/L (42-121); ALT ALANINE AMINOTRANSFERASE 123 IU/L (10-60); AST ASPARTATE AMINOTRANSFERASE 109 IU/L (10-42); BILIRUBIN,TOTAL 0.8 mg/dL (0.2-1.0); BUN - BLOOD UREA NITROGEN 12 mg/dL (6-20); CALCIUM 9.1 mg/dL (8.5-10.3); CARBON DIOXIDE - CO2 28 mmol/L (21-32); CHLORIDE 108 mmol/L (101-111); CHOL/HDL RATIO 2.4 (<5.0); CHOLESTEROL 123 mg/dL; GFR - MDRD 73 (>89); GLUCOSE 88 mg/dL (70-100); HDL CHOLESTEROL 51 mg/dL; LDL CHOLESTEROL,CALCULATED 58 mg/dL; LDL/HDL RATIO 1.1 (<3.6); POTASSIUM 4.1 mmol/L (3.5-5.0); SODIUM 138 mmol/L (135-145); TOTAL PROTEIN 6.9 g/dL (6.7-8.2); TRIGLYCERIDES 71 mg/dL; VLDL CHOLESTEROL 14 mg/dL
[2023-01-28 12:52] LABS: ESTIMATED AVERAGE GLUCOSE 114 mg/dL (70-100); HEMOGLOBIN A1c% 5.6 % (4.27-6.07)
== END 2023-01-28 08:45 | disposition home or self-care (01) ==
LOC: LAB.N 08:44
PROVIDERS: ATTEND Family Medicine
DX: I25.10 Atherosclerotic heart disease of native coronary artery without angina pectoris (principal); N40.0 Benign prostatic hyperplasia without lower urinary tract symptoms; E78.5 Hyperlipidemia, unspecified; R73.9 Hyperglycemia, unspecified; Z12.5 Encounter for screening for malignant neoplasm of prostate
CPT/HCPCS: 36415; 80053; 80061; 83036; 83721; 84153; 84443; 85025

== ENCOUNTER 2023-04-18 19:33 | Emergency (ER) | payer OTHER ==
[2023-04-18 19:44] VITALS: BP 143/83
--- NOTE | 2023-04-18 20:32 | ED Physician Documentation ---
PD HPI SKIN - Stated complaint Stated Complaint: L ALVARO LAC - Chief complaint Chief Complaint: Laceration - History obtained from History obtained from: Patient - Additional information Additional information: 72-year-old man presents to the emergency department with left second and third finger laceration after cutting with gardening tool today. last [id number]. no other complaints PD PAST MEDICAL HISTORY - Past Medical History Cardiovascular: High cholesterol Respiratory: None Neuro: None Endocrine/Autoimmune: None GI: None : Benign prostate hypertrophy, Other HEENT: Glaucoma Psych: None Musculoskeletal: None Derm: None - Past Surgical History Past Surgical History: Yes General: Appendectomy, Other Cardiovascular: Coronary stent, Cardiac catheterization HEENT: Cataracts - Present Medications Home Medications: Ambulatory Orders Medication Instructions Recorded Confirmed Latanoprost [Xalatan] 2.5 ml OP DAILY 08/08/18 04/18/23 Multivit-Min/FA/Lycopen/Lutein 1 each PO DAILY 12/03/20 04/18/23 [Adults 50 Plus Multivitamin] Rosuvastatin Calcium [Crestor] 10 mg PO QPM 12/03/20 04/18/23 Sildenafil Citrate [Viagra] 25 mg PO PRN PRN 12/03/20 04/18/23 Tamsulosin [Flomax] 0.4 mg PO QPM 12/03/20 04/18/23 Aspirin [Aspirin EC] 81 mg PO DAILY 04/18/23 04/18/23 Atorvastatin Calcium 40 mg PO DAILY 04/18/23 04/18/23 Finasteride [Proscar] 5 mg PO DAILY 04/18/23 04/18/23 - Allergies Allergies/Adverse Reactions: Allergies Allergy/AdvReac Type Severity Reaction Status Date / Time No Known Drug Allergies Allergy Verified 03/17/21 14:23 - Social History Does the pt smoke?: No Smoking Status: Never smoker Does the pt drink ETOH?: No Does the pt have substance abuse?: No - Immunizations Immunizations are current?: No - POLST Patient has POLST: No PD ED PE NORMAL - Vitals Vital signs reviewed: Yes - General General: Alert and oriented X 3, No acute distress, Well developed/nourished - HEENT HEENT: Atraumatic, PERRL, EOMI - Derm Derm: Normal color, Warm and dry, Other (2 1cm lacerations of 3rd digit of LUE. 1 1cm laceration of 2nd digit LUE) Results - Vitals Vitals: Vital Signs - 24 hr 04/18/23 19:39 Temperature 36.6 C Heart Rate 60 Respiratory 18 Rate Blood Pressure 143/83 H O2 Saturation 99 Oxygen O2 Source Room air Procedures - Laceration (location) Finger left Length in cm: 3 Wound type: Linear Neurovascular status: Sensory intact, Motor intact, Vascular intact Anesthesia: Lidocaine 1% Wound preparation: Irrigated copiously NS, Wound explored, To the base Skin layer closure: Nylon, Interrupted, Size #-0 - enter number (4), Sutures - enter # (3) Other: Patient tolerated well, No complications, Dressing applied, Tetanus UTD PD Medical Decision Making - ED course ED course: 72-year-old man presented with simple finger lacerations which were repaired without issue. Return precautions given. Plan to follow-up for suture removal in walk-in clinic in 14 days. Departure - Departure Disposition: 01 Home, Self Care Clinical Impression: Laceration of finger Condition: Stable Instructions: ED Laceration All Comments: You were seen in the emergency department for laceration of your finger. 3 stitches were placed that need to be removed in 14 days. Please follow-up with walk-in clinic for this. Return to the emergency department If you see signs of infection or have other concerns.
== END 2023-04-18 20:35 | disposition home or self-care (01) ==
LOC: ED 19:33
DX: S61.211A Laceration without foreign body of left index finger without damage to nail, initial encounter (principal); S61.213A Laceration without foreign body of left middle finger without damage to nail, initial encounter; W27.1XXA Contact with garden tool, initial encounter; E78.00 Pure hypercholesterolemia, unspecified; Z79.899 Other long term (current) drug therapy; Z79.82 Long term (current) use of aspirin
CPT/HCPCS: 12002; 99281

== ENCOUNTER 2023-10-25 14:32 | Outpatient (CLI) | payer OTHER ==
--- NOTE | 2023-10-25 18:36 | XRAY Report ---
PROCEDURE: Foot 3 View RT INDICATIONS: HEEL PAIN, RIGHT TECHNIQUE: 3 views of the foot were acquired. COMPARISON: None. FINDINGS: Bones: No fractures or dislocations. No suspicious bony lesions. Soft tissues: No suspicious soft tissue calcifications or masses. IMPRESSION: No acute bony abnormality. Reviewed by: Lawson West MD on 10/25/2023 6:35 PM PST Approved by: Lawson West MD on 10/25/2023 6:35 PM [facility] Station ID: [id number]
== END 2023-10-25 14:33 | disposition home or self-care (01) ==
LOC: DI.N 14:32
PROVIDERS: ATTEND Nurse Practitioner Family
DX: M79.671 Pain in right foot (principal)

== ENCOUNTER 2024-02-08 08:32 | Outpatient (CLI) | payer OTHER ==
[2024-02-08 12:02] LABS: BASOPHILS % (AUTO) 0.4 %; EOSINOPHILS # (AUTO) 0.2 10^3/uL (0.0-0.7); EOSINOPHILS % (AUTO) 3.4 %; HCT - HEMATOCRIT 45.1 % (42.0-52.0); HGB - HEMOGLOBIN 15.1 g/dL (14.0-18.0); LYMPHOCYTES # (AUTO) 1.3 10^3/uL (1.5-3.5); LYMPHOCYTES % (AUTO) 26.5 %; MEAN CORPUSCULAR HEMOGLOBIN 30.3 pg (27.0-31.0); MEAN CORPUSCULAR HGB CONC 33.5 g/dL (32.0-36.0); MEAN CORPUSCULAR VOLUME 90.6 fL (80.0-94.0); MEAN PLATELET VOLUME 10.2 fL (7.4-11.4); MONOCYTES # (AUTO) 0.5 10^3/uL (0.0-1.0); MONOCYTES % (AUTO) 9.8 %; NEUTROPHILS % (AUTO) 59.7 %; PLT - PLATELET COUNT 134 10^3/uL (130-450); RED BLOOD COUNT 4.98 10^6/uL (4.70-6.10); RED CELL DISTRIBUTION WIDTH 12.7 % (12.0-15.0)
[2024-02-08 12:08] LABS: ESTIMATED AVERAGE GLUCOSE 108 mg/dL (70-100); HEMOGLOBIN A1c% 5.4 % (4.27-6.07)
[2024-02-08 12:29] LABS: ALBUMIN/GLOBULIN RATIO 1.4 (1.0-2.2); ALKALINE PHOSPHATASE 91 IU/L (42-121); ALT ALANINE AMINOTRANSFERASE 230 IU/L (10-60); AST ASPARTATE AMINOTRANSFERASE 169 IU/L (10-42); BILIRUBIN,TOTAL 0.8 mg/dL (0.2-1.0); BUN - BLOOD UREA NITROGEN 13 mg/dL (6-20); CARBON DIOXIDE - CO2 29 mmol/L (21-32); CHLORIDE 107 mmol/L (101-111); CHOL/HDL RATIO 3.1 (<5.0); CHOLESTEROL 129 mg/dL; CREATININE 0.9 mg/dL (0.6-1.3); GFR - MDRD 82 (>89); GLUCOSE 92 mg/dL (74-104); HDL CHOLESTEROL 42 mg/dL; LDL CHOLESTEROL,CALCULATED 64 mg/dL; LDL/HDL RATIO 1.5 (<3.6); POTASSIUM 4.2 mmol/L (3.5-4.5); SODIUM 138 mmol/L (135-145); TOTAL PROTEIN 6.8 g/dL (6.4-8.9); TRIGLYCERIDES 113 mg/dL (48-352); VLDL CHOLESTEROL 23 mg/dL
[2024-02-08 12:34] LABS: THYROID STIMULATING HORMONE 2.68 uIU/mL (0.34-5.60)
== END 2024-02-08 08:33 | disposition home or self-care (01) ==
LOC: LAB.N 08:32
PROVIDERS: ATTEND Family Medicine
DX: R73.9 Hyperglycemia, unspecified (principal); Z12.5 Encounter for screening for malignant neoplasm of prostate; I25.10 Atherosclerotic heart disease of native coronary artery without angina pectoris; N40.0 Benign prostatic hyperplasia without lower urinary tract symptoms
CPT/HCPCS: 36415; 80053; 80061; 83036; 83721; 84153; 84443; 85025

== ENCOUNTER 2024-03-15 14:49 | Outpatient (CLI) | payer OTHER ==
[2024-03-15 17:47] LABS: ALBUMIN 3.8 g/dL (3.2-5.5); ALKALINE PHOSPHATASE 74 IU/L (42-121); ALT ALANINE AMINOTRANSFERASE 78 IU/L (10-60); AST ASPARTATE AMINOTRANSFERASE 58 IU/L (10-42); BILIRUBIN,DIRECT < 0.10 mg/dL (0.03-0.18); BILIRUBIN,TOTAL 0.5 mg/dL (0.2-1.0); GAMMA GLUTAMYL TRANSPEPTIDASE 37 IU/L (9-64); TOTAL PROTEIN 6.6 g/dL (6.4-8.9)
[2024-03-16 08:10] LABS: HBsAG SCREEN Negative (Negative); HEPATITIS B SURFACE AB QUAL Non Reactive (.)
== END 2024-03-15 14:50 | disposition home or self-care (01) ==
LOC: LAB.N 14:49
PROVIDERS: ATTEND Family Medicine
DX: R74.01 Elevation of levels of liver transaminase levels (principal)
CPT/HCPCS: 36415; 80076; 82977; 86704; 86706; 86803; 87340